=== PATIENT | male | born 1985 | race Caucasian/White ===

== ENCOUNTER 2018-09-19 18:59 | Emergency (ER) | payer MEDICAID ==
[~2018-09-19] VITALS: Ht 180.3 cm; Wt 138.0 kg
[~2018-09-19 18:59] MED LIST: ALBU8.5H8 IH; APIX2.5T PO; CARV25TA2 PO; COLC1TAB2 PO; FURO20TA4 PO; GUAI120015 PO; HYDR-3964 PO; MYCO500T PO; OMEP20TA5 PO; PRED10TA23 PO; SIRO1TAB6 PO
[2018-09-19 19:08] VITALS: BP 130/88
[2018-09-19] MEDS ORDERED: AZIT250T83 PO (20:39)
[2018-09-19] MEDS ORDERED: ACYC400T PO (20:39)
[2018-09-19] MEDS ORDERED: neomy sulf/polymyx B sulf/HC 10ml otic suspension RIGHT EAR STA (20:43)
[2018-09-19] MEDS ORDERED: dexamethasone 4mg tablet PO ONE (20:45)
== END 2018-09-19 20:56 | disposition home or self-care (01) ==
LOC: ER 19:00
DX: H66.91 Otitis media, unspecified, right ear (principal); K12.0 Recurrent oral aphthae; I48.91 Unspecified atrial fibrillation; I25.10 Atherosclerotic heart disease of native coronary artery without angina pectoris; I11.0 Hypertensive heart disease with heart failure; I50.9 Heart failure, unspecified; Z88.6 Allergy status to analgesic agent; Z91.013 Allergy to seafood; Z79.899 Other long term (current) drug therapy; Z94.1 Heart transplant status
CPT/HCPCS: 99283; J8540

== ENCOUNTER 2019-05-06 12:54 | Outpatient (CLI) | payer MEDICAID | END 2019-05-06 23:59 | disposition home or self-care (01) | LOC: CARD DIAG 12:54 | PROVIDERS: ATTEND Family Medicine | DX: I08.1 Rheumatic disorders of both mitral and tricuspid valves (principal); I45.2 Bifascicular block; I48.91 Unspecified atrial fibrillation; E78.5 Hyperlipidemia, unspecified; E66.9 Obesity, unspecified; Z94.1 Heart transplant status | CPT/HCPCS: 93005; 93306 ==

== ENCOUNTER 2019-05-25 14:04 | Outpatient (CLI) | payer MEDICAID | END 2019-05-25 23:59 | disposition home or self-care (01) | LOC: RAD 14:04 | PROVIDERS: ATTEND Internal Medicine | DX: Z48.24 Encounter for aftercare following lung transplant (principal) | CPT/HCPCS: 71046 ==

== ENCOUNTER 2019-09-23 01:55 | Inpatient (IN) | payer MEDICAID ==
[~2019-09-23] VITALS: Ht 180.3 cm; Wt 137.3 kg
[2019-09-23] MEDS ORDERED: furosemide 10 MG/1 ML 10ml inj IV ONE (03:10)
[2019-09-23 03:49] LABS: BASOPHILS # (AUTO) 0.3 X10'3 (0-0.2); BASOPHILS % (AUTO) 2.5 % (0-1); EOSINOPHILS % (AUTO) 9.5 % (0-6); HEMATOCRIT 36.9 % (42.0-52.0); HEMOGLOBIN 12.3 g/dl (14.0-17.9); LYMPHOCYTES # (AUTO) 1.1 X10'3 (1.1-4.8); LYMPHOCYTES % (AUTO) 10.8 % (21-51); MEAN CORPUSCULAR HEMOGLOBIN 29.1 PG (27.0-31.0); MEAN CORPUSCULAR HGB CONC 33.2 g/dL (33.0-36.5); MEAN CORPUSCULAR VOLUME 87.6 FL (78-98); MEAN PLATELET VOLUME 10.7 FL (7.4-10.4); MONOCYTES # (AUTO) 1.1 X10'3 (0-0.9); MONOCYTES % (AUTO) 10.1 % (2-12); NEUTROPHILS # (AUTO) 7.1 X10'3 (1.8-7.7); NEUTROPHILS % (AUTO) 67.1 % (42-75); PLATELET COUNT 208 X10'3 (140-440); RED BLOOD COUNT 4.21 X10'6 (4.70-6.10); RED CELL DISTRIBUTION WIDTH 17.4 % (11.5-14.5); WHITE BLOOD COUNT 10.6 X10'3 (4.5-11.0)
[2019-09-23 03:54] LABS: ALANINE AMINOTRANSFERASE 15 U/L (12-78); ALBUMIN 3.5 G/DL (3.4-5.0); ALBUMIN/GLOBULIN RATIO 0.7 (1.1-1.5); ALKALINE PHOSPHATASE 204 IU/L (46-116); ANION GAP 6 (8-16); ASPARTATE AMINO TRANSFERASE 24 U/L (10-37); BILIRUBIN,TOTAL 1.2 MG/DL (0.1-1.0); BLOOD UREA NITROGEN 40 MG/DL (7-18); BUN/CREATININE RATIO 19.1 (5.4-32.0); CALCIUM 8.8 MG/DL (8.5-10.1); CHLORIDE 103 MMOL/L (99-107); CREATININE 2.09 MG/DL (0.60-1.10); GLUCOSE 98 MG/DL (70-104); POTASSIUM 3.8 MMOL/L (3.5-5.1); SODIUM 139 MMOL/L (135-145); TOTAL CARBON DIOXIDE 29.9 MMOL/L (24-32); TOTAL PROTEIN 8.2 G/DL (6.4-8.2); eGFR 36 ML/MIN
[2019-09-23 04:29] LABS: PLATELET ESTIMATE NORMAL
[2019-09-23 04:30] LABS: LARGE PLATELETS FEW
[2019-09-23] MEDS ORDERED: mag hydrox/Alum hydrox/simeth 30ml oral suspension PO PRN (05:25)
[2019-09-23] MEDS ORDERED: ondansetron/PF 4mg/2ml inj IV PRN (05:25)
[2019-09-23] MEDS ORDERED: potassium Cl 20 mEq SR tablet PO PRN ×2 (05:25)
[2019-09-23] MEDS ORDERED: magnesium hydroxide 30ml (MOM) UD suspension PO PRN (05:25)
[2019-09-23] MEDS ORDERED: potassium CL 10mEq/100ml bag 100 ML IV PRN ×2 (05:25)
[2019-09-23] MEDS ORDERED: magnesium 2GM in 50ml NS 50 ML IV PRN (05:25)
[2019-09-23] MEDS ORDERED: acetaminophen 325mg tablet PO PRN (05:25)
[2019-09-23] MEDS ORDERED: magnesium 4gm in 100ml NS 100 ML IV PRN (05:25)
[2019-09-23] MEDS ORDERED: LISI-600 PO (05:58)
[2019-09-23] MEDS ORDERED: TACR1CAP28 PO (05:58)
[2019-09-23] MEDS ORDERED: MAGN400C PO (05:58)
[2019-09-23] MEDS ORDERED: DIGO125T PO (05:59)
--- NOTE | 2019-09-23 07:00 | NUR ---
Received report from ER nurse, will prepare room for patient.
[2019-09-23] MEDS: magnesium oxide 400mg tablet PO SCH ×2 (07:48→20:30)
[2019-09-23] MEDS: lisinopril 5mg tablet PO SCH ×2 (07:48→20:00)
[2019-09-23] MEDS: apixaban 5mg tablet PO SCH ×2 (07:48→20:29)
[2019-09-23] MEDS: carVEDilol 12.5mg tablet PO SCH ×2 (07:49→20:35)
[2019-09-23] MEDS: digoxin 125mcg (0.125mg) tablet PO SCH (07:50)
[2019-09-23 07:51] VITALS: BP 131/75
--- NOTE | 2019-09-23 07:53 | NUR ---
Patient arrived on unit, VSS, no acute distress,telemetry applied. Will continue to monitor
[2019-09-23] MEDS: K and/or MAG REPLACEMENT MC SCH ×2 (08:00→20:00)
[2019-09-23] MEDS ORDERED: enoxaparin 40mg/0.4ml syringe SQ SCH (08:00)
[2019-09-23] MEDS: tacrolimus anhydrous 1mg capsule PO SCH ×2 (09:42→20:34)
[2019-09-23] MEDS ORDERED: ALB0.5UD IH (11:47)
[2019-09-23] MEDS ORDERED: APIX5TAB3 PO (11:48)
[2019-09-23] MEDS ORDERED: LISI-604 PO (11:50)
[2019-09-23] MEDS ORDERED: ALLO100T PO (11:50)
[2019-09-23 12:02] VITALS: BP 95/67
[2019-09-23 17:27] VITALS: BP 103/70
[2019-09-23 18:00] VITALS: BP 105/64
--- NOTE | 2019-09-23 18:25 | NUR ---
Problems reprioritized. Patient report given, questions answered & plan of care reviewed with ADA Lancaster.
[2019-09-23] MEDS: furosemide 10 MG/1 ML 10ml inj IV SCH (20:36)
--- NOTE | 2019-09-23 20:48 | NUR ---
zestril 5mg not administered for BP of 90/50mmhg
[2019-09-23 23:00] VITALS: BP 108/56
[2019-09-24 03:00] VITALS: BP 104/56
[2019-09-24 05:50] LABS: BASOPHILS # (AUTO) 0.2 X10'3 (0-0.2); BASOPHILS % (AUTO) 1.8 % (0-1); EOSINOPHILS # (AUTO) 0.8 X10'3 (0-0.9); EOSINOPHILS % (AUTO) 9.8 % (0-6); HEMATOCRIT 34.6 % (42.0-52.0); HEMOGLOBIN 11.5 g/dl (14.0-17.9); LYMPHOCYTES # (AUTO) 1.2 X10'3 (1.1-4.8); LYMPHOCYTES % (AUTO) 13.5 % (21-51); MEAN CORPUSCULAR HEMOGLOBIN 29.2 PG (27.0-31.0); MEAN CORPUSCULAR HGB CONC 33.1 g/dL (33.0-36.5); MEAN CORPUSCULAR VOLUME 88.1 FL (78-98); MEAN PLATELET VOLUME 10.7 FL (7.4-10.4); MONOCYTES # (AUTO) 0.8 X10'3 (0-0.9); MONOCYTES % (AUTO) 8.8 % (2-12); NEUTROPHILS # (AUTO) 5.7 X10'3 (1.8-7.7); NEUTROPHILS % (AUTO) 66.1 % (42-75); PLATELET COUNT 190 X10'3 (140-440); RED BLOOD COUNT 3.92 X10'6 (4.70-6.10); RED CELL DISTRIBUTION WIDTH 17.7 % (11.5-14.5); WHITE BLOOD COUNT 8.6 X10'3 (4.5-11.0)
[2019-09-24 06:00] VITALS: BP 102/64
[2019-09-24 06:11] LABS: ALANINE AMINOTRANSFERASE 18 U/L (12-78); ALBUMIN 3.4 G/DL (3.4-5.0); ALBUMIN/GLOBULIN RATIO 0.8 (1.1-1.5); ALKALINE PHOSPHATASE 191 IU/L (46-116); ANION GAP 7 (8-16); ASPARTATE AMINO TRANSFERASE 23 U/L (10-37); BILIRUBIN,TOTAL 1.3 MG/DL (0.1-1.0); BLOOD UREA NITROGEN 44 MG/DL (7-18); BUN/CREATININE RATIO 19.8 (5.4-32.0); CALCIUM 8.6 MG/DL (8.5-10.1); CHLORIDE 101 MMOL/L (99-107); CREATININE 2.22 MG/DL (0.60-1.10); GLUCOSE 94 MG/DL (70-104); MAGNESIUM 1.9 MG/DL (1.5-2.4); POTASSIUM 3.9 MMOL/L (3.5-5.1); SODIUM 138 MMOL/L (135-145); TOTAL CARBON DIOXIDE 30.3 MMOL/L (24-32); TOTAL PROTEIN 7.7 G/DL (6.4-8.2); eGFR 34 ML/MIN
[2019-09-24] MEDS: furosemide 10 MG/1 ML 10ml inj IV SCH (07:27)
[2019-09-24] MEDS: apixaban 5mg tablet PO SCH (07:29)
[2019-09-24] MEDS: digoxin 125mcg (0.125mg) tablet PO SCH (07:30)
[2019-09-24] MEDS: magnesium oxide 400mg tablet PO SCH (07:30)
[2019-09-24] MEDS: tacrolimus anhydrous 1mg capsule PO SCH (07:30)
[2019-09-24] MEDS: lisinopril 5mg tablet PO SCH (07:30)
[2019-09-24] MEDS: carVEDilol 12.5mg tablet PO SCH (07:30)
[2019-09-24] MEDS: K and/or MAG REPLACEMENT MC SCH (07:42)
[2019-09-24 11:00] VITALS: BP 108/65
--- NOTE | 2019-09-24 14:15 | NUR ---
PAGER ID: [phone] MESSAGE: ADA Paul, ext [phone], White, patient's [employer] driver said that either medication is fine, it's up to you. Also echo and US are done, patient wants to know what time he can go.
[2019-09-24] MEDS ORDERED: BUME2TAB7 PO (14:58)
--- NOTE | 2019-09-24 15:15 | NUR ---
received orders for patient discharge to home. Patient belongings gathered, IV removed, catheter tip intact, hemostasis achieved, telemetry removed, wrist band removed. Patient educated on discharge medications, medications transmitted to [facility] [address], patient verbalized understanding to start using bumex and discontinue lasix. Patient educated on worsening symptoms and to return to ED if necessary. Patient instructed to follow up with Dr. Mahoney and with primary care doctor within the week and get a CBC and CMP, patient verbalized undserstanding of instructions. Stable at time of discharge.
== END 2019-09-24 15:18 | disposition home or self-care (01) | DRG 194 ==
LOC: ER 01:56 → ED HOLD 05:21 → PCU 3S 07:00 → CMPBEDREQ 20:16
PROVIDERS: ADMIT Family Medicine; ATTEND Family Medicine
DX: I13.0 Hypertensive heart and chronic kidney disease with heart failure and stage 1 through stage 4 chronic kidney disease, or unspecified chronic kidney disease (principal); N17.9 Acute kidney failure, unspecified; I25.811 Atherosclerosis of native coronary artery of transplanted heart without angina pectoris; I42.9 Cardiomyopathy, unspecified; I50.23 Acute on chronic systolic (congestive) heart failure; I48.91 Unspecified atrial fibrillation; I50.84 End stage heart failure; N18.9 Chronic kidney disease, unspecified; E78.5 Hyperlipidemia, unspecified; Z83.3 Family history of diabetes mellitus; Z88.8 Allergy status to other drugs, medicaments and biological substances; Z91.041 Radiographic dye allergy status; Z91.013 Allergy to seafood; Z79.899 Other long term (current) drug therapy; Z87.891 Personal history of nicotine dependence; Z95.0 Presence of cardiac pacemaker
CPT/HCPCS: 36415; 71045; 76700; 80053; 80162; 83735; 83880; 84484; 85025; 87081; 93005; 93306; 96374; 99285; G0378; J1940; J7507

== ENCOUNTER 2019-11-30 21:30 | Emergency (ER) | payer MEDICAID ==
[~2019-11-30] VITALS: Ht 180.3 cm; Wt 151.2 kg
[~2019-11-30 21:30] MED LIST changes: +ALB0.5UD IH; -ALBU8.5H8 IH; +ALLO100T PO; -APIX2.5T PO; +APIX5TAB3 PO; +BUME2TAB7 PO; -COLC1TAB2 PO; +DIGO125T PO; -FURO20TA4 PO; -GUAI120015 PO; -HYDR-3964 PO; +LISI-600 PO; +MAGN400C PO; -MYCO500T PO; -OMEP20TA5 PO; -PRED10TA23 PO; +TACR1CAP28 PO
[2019-11-30] MEDS ORDERED: bumetanide 0.25mg/ml 4ml vial IV ONE ×2 (21:50→23:15)
[2019-11-30 22:17] LABS: ALANINE AMINOTRANSFERASE 17 U/L (12-78); ALBUMIN 2.5 G/DL (3.4-5.0); ALBUMIN/GLOBULIN RATIO 0.6 (1.1-1.5); ALKALINE PHOSPHATASE 210 IU/L (46-116); ANION GAP 7 (8-16); ASPARTATE AMINO TRANSFERASE 30 U/L (10-37); BILIRUBIN,TOTAL 1.2 MG/DL (0.1-1.0); BLOOD UREA NITROGEN 32 MG/DL (7-18); BUN/CREATININE RATIO 19.3 (5.4-32.0); CALCIUM 8.1 MG/DL (8.5-10.1); CHLORIDE 105 MMOL/L (99-107); CREATININE 1.66 MG/DL (0.60-1.10); GLUCOSE 135 MG/DL (70-104); POTASSIUM 3.2 MMOL/L (3.5-5.1); SODIUM 143 MMOL/L (135-145); TOTAL CARBON DIOXIDE 31.5 MMOL/L (24-32); TOTAL PROTEIN 6.6 G/DL (6.4-8.2); eGFR 47 ML/MIN
[2019-11-30 22:41] LABS: BASOPHILS # (AUTO) 0.1 X10'3 (0-0.2); BASOPHILS % (AUTO) 1.4 % (0-1); EOSINOPHILS # (AUTO) 0.9 X10'3 (0-0.9); EOSINOPHILS % (AUTO) 9.4 % (0-6); HEMATOCRIT 37.7 % (42.0-52.0); HEMOGLOBIN 12.5 g/dl (14.0-17.9); LYMPHOCYTES % (AUTO) 9.7 % (21-51); MEAN CORPUSCULAR HEMOGLOBIN 28.6 PG (27.0-31.0); MEAN CORPUSCULAR HGB CONC 33.1 g/dL (33.0-36.5); MEAN CORPUSCULAR VOLUME 86.4 FL (78-98); MEAN PLATELET VOLUME 10.5 FL (7.4-10.4); MONOCYTES # (AUTO) 1.2 X10'3 (0-0.9); MONOCYTES % (AUTO) 11.7 % (2-12); NEUTROPHILS # (AUTO) 6.9 X10'3 (1.8-7.7); NEUTROPHILS % (AUTO) 67.8 % (42-75); PLATELET COUNT 205 X10'3 (140-440); RED BLOOD COUNT 4.37 X10'6 (4.70-6.10); RED CELL DISTRIBUTION WIDTH 18.5 % (11.5-14.5); WHITE BLOOD COUNT 10.1 X10'3 (4.5-11.0)
[2019-11-30] MEDS ORDERED: BUME2TAB7 PO (23:20)
[2019-11-30 23:33] VITALS: BP 132/83
== END 2019-11-30 23:39 | disposition home or self-care (01) ==
LOC: ER 21:30
DX: R60.0 Localized edema (principal); I25.10 Atherosclerotic heart disease of native coronary artery without angina pectoris; I11.0 Hypertensive heart disease with heart failure; I50.9 Heart failure, unspecified; I48.91 Unspecified atrial fibrillation; Z88.6 Allergy status to analgesic agent; Z91.013 Allergy to seafood; Z79.899 Other long term (current) drug therapy; Z94.1 Heart transplant status
CPT/HCPCS: 36415; 71045; 80053; 83880; 84484; 85025; 93005; 96374; 96376; 99285; J3490

== ENCOUNTER 2020-01-18 23:59 | Emergency (ER) | payer MEDICAID ==
[~2020-01-18] VITALS: Ht 180.3 cm; Wt 144.0 kg
[~2020-01-18 23:59] MED LIST changes: +TACR1CAP24 PO; -TACR1CAP28 PO
[2020-01-19 00:05] VITALS: BP 148/99
[2020-01-19 00:59] LABS: ALBUMIN 2.2 G/DL (3.4-5.0); ANION GAP 2 (8-16); BLOOD UREA NITROGEN 80 MG/DL (7-18); BUN/CREATININE RATIO 31.3 (5.4-32.0); CHLORIDE 99 MMOL/L (99-107); CREATININE 2.56 MG/DL (0.60-1.10); GLUCOSE 110 MG/DL (70-104); POTASSIUM 3.4 MMOL/L (3.5-5.1); SODIUM 137 MMOL/L (135-145); TOTAL CARBON DIOXIDE 36.5 MMOL/L (24-32); eGFR 29 ML/MIN
== END 2020-01-19 01:45 | disposition home or self-care (01) ==
LOC: ER 23:59
DX: R25.2 Cramp and spasm (principal); I25.10 Atherosclerotic heart disease of native coronary artery without angina pectoris; I11.0 Hypertensive heart disease with heart failure; I50.9 Heart failure, unspecified; I48.91 Unspecified atrial fibrillation; Z79.899 Other long term (current) drug therapy; Z88.6 Allergy status to analgesic agent; Z91.013 Allergy to seafood
CPT/HCPCS: 36415; 80048; 99283